=== PATIENT | female | born 1955 | race Caucasian/White ===

== ENCOUNTER 2024-03-14 08:24 | Emergency (ER) | payer MEDICARE ==
[2024-03-14 09:05] VITALS: TEMP 99.7
--- NOTE | 2024-03-14 09:26 | ERPHSYRPT ---
- History of Present Illness Time Seen by Provider: 03/14/24 09:00 Source: patient Exam Limitations: no limitations Patient Subjective Stated Complaint: Cough Triage Nursing Assessment: Patient brought back to ED and transferred self to bed. Patient A+O X 3. Patient's skin flushed, warm and dry. Patient complains of cough for two weeks. Patient has been on Doxycycline and prednisone, but has finished. Patient followed up with PCP yesterday and had blood work and chest xray done and has double pneumonia and was told to come to ER yesterday, but patient stated she felt too bad to come yesterday. Patient denies pain or discomfort. Lungs noted to have wheezing throughout. Patient states she has productive cough with thick yellow/brown/blood tinged sputum. Patient wears home O2 at night at 3 liters and has been wearing during the day. Physician History: Patient is a 69-year-old female presents to our ED for evaluation of cough and shortness of breath. Patient states symptoms started approximately 2 weeks ago. Her primary care doctor diagnosed her with pneumonia and treated her with doxycycline and prednisone. Patient completed a course of antibiotics and symptoms persisted. Patient followed up with her PCP yesterday. Blood work and chest x-ray completed. Patient was diagnosed with double pneumonia and advised to come to our ED for an evaluation. Patient was advised to come to our ED yesterday however she felt too sick to come to the ED for an evaluation. Cough is productive. Patient describes her sputum as yellow and sometimes blood- tinged. Patient requires nightly home O2 usually 3 L but is now requiring it all day long Timing/Duration: yesterday Activities at Onset: none Severity of Dyspnea-Max: moderate Severity of Dyspnea-Current: moderate Possible Cause: occasional episodes Modifying Factors: Improves With: activity Associated Symptoms: cough, weakness, productive cough Allergies/Adverse Reactions: No Known Drug Allergies Allergy (Unverified 03/14/24 08:50) Home Medications: Alendronate Sodium 70 mg [Fosamax 70 MG] 1 tab PO WEEKLY 03/14/24 [History] Amlodipine Besylate [Norvasc] 1 tab PO DAILY 03/14/24 [History] Clopidogrel Bisulfate [Clopidogrel] 1 tab PO DAILY 03/14/24 [History] Ezetimibe 10 mg [Zetia 10 MG] 1 tab PO DAILY 03/14/24 [History] Fenofibrate,Micronized 145 mg* [Tricor 145 MG] 1 tab PO DAILY 03/14/24 [History] Levothyroxine Sodium 1 tab PO DAILY 03/14/24 [History] Metoprolol Succinate [Toprol Xl] 1 tab PO DAILY 03/14/24 [History] Montelukast Sodium 10 mg [Singulair 10 MG] 1 tab PO DAILY 03/14/24 [History] Omeprazole 1 cap PO DAILY 03/14/24 [History] lisinopriL [Lisinopril] 1 tab PO DAILY 03/14/24 [History] Hx Influenza Vaccination/Date Given: No Hx Pneumococcal Vaccination/Date Given: No Immunizations Up to Date: Yes Travel Risk - International Travel Have you traveled outside of the country in past 3 weeks: No - Emerging Infectious Disease Are you exhibiting symptoms associated with any current EIDs: Yes Symptoms: Cough: New Onset - Review of Systems Constitutional: No Symptoms, No Fever, No Chills Eyes: No Symptoms Ears, Nose, & Throat: No Symptoms Respiratory: No Symptoms, No Cough, No Dyspnea Cardiac: No Symptoms, No Chest Pain, No Edema, No Syncope Abdominal/Gastrointestinal: No Symptoms, No Abdominal Pain, No Nausea, No Vomiting, No Diarrhea Genitourinary Symptoms: No Symptoms, No Dysuria Musculoskeletal: No Symptoms, No Back Pain, No Neck Pain Skin: No Symptoms, No Rash Neurological: No Symptoms, No Dizziness, No Focal Weakness, No Sensory Changes Psychological: No Symptoms Endocrine: No Symptoms Hematologic/Lymphatic: No Symptoms Immunological/Allergic: No Symptoms All Other Systems: Reviewed and Negative - Past Medical History Pertinent Past Medical History: Yes ENT History: No Pertinent History Cardiac History: High Cholesterol, Hypertension Respiratory History: COPD Endocrine Medical History: No Pertinent History Musculoskeletal History: No Pertinent History GI Medical History: No Pertinent History History: No Pertinent History Psycho-Social History: No Pertinent History Female Reproductive Disorders: No Pertinent History - Past Surgical History Past Surgical History: No Neuro Surgical History: No Pertinent History Other Surgical History: Thyroidectomy- 4 years ago - Social History Smoking Status: Former smoker Exposure to second hand smoke: Yes Drug Use: none - Social Determinants of Health Will the patient participate in the screening: Yes Do you worry about a steady place to live?: No Do you have any problems with any of the following?: No known problems In the past 12 months,have you had to go without utilities?: No Transportation Issues: No Has anyone in your support network made you feel unsafe?: No Have you or anyone in your house had to go without enough: No - Nursing Vital Signs Nursing Vital Signs: Initial Vital Signs Pulse Rate 102 H 03/14/24 08:47 Respiratory Rate 19 03/14/24 08:47 Blood Pressure 131/69 03/14/24 08:47 O2 Sat by Pulse Oximetry 91 L 03/14/24 08:47 Pain Scale Pain Intensity 0 - Physical Exam General Appearance: no apparent distress, alert Eye Exam: PERRL/EOMI, eyes nml inspection Ears, Nose, Throat Exam: hearing grossly normal, normal ENT inspection, normal pharynx Neck Exam: normal inspection, supple Respiratory Exam: diminished breath sounds, rhonchi, wheezing Cardiovascular/Chest Exam: normal heart sounds, regular rate/rhythm Abdominal/Gastrointestinal Exam: soft, No tenderness, No distention, No mass Extremity Exam: non-tender, normal range of motion, normal inspection, no calf tenderness, no pedal edema Neurologic Exam: alert, oriented x 3, cooperative, food order expediter II-XII nml as tested, sensation nml, No motor deficits Skin Exam: normal color, warm, No dry Lymphatic Exam: No adenopathy SpO2 Interpretation: normal, hypoxic SpO2: 90 O2 Delivery: Room Air - Course Nursing assessment & vital signs reviewed: Yes EKG Interpreted by Me: RATE (99), Sinus Rhythm, NORMAL AXIS, NORMAL INTERVALS, NORMAL QRS - CT Exams Chest CT Interpretation: Tele-radiologist Report (No PE, pulmonary cystic masses and chronic findings) Ordered Tests: Active Orders 24 hr Category Date Time Status Airbrush Artist Technical STAT Care 03/14/24 09:23 Completed EKG-ER Only STAT Care 03/14/24 09:22 Completed IV Insertion STAT Care 03/14/24 09:22 Completed Pulse Oximetry (ED) STAT Care 03/14/24 09:22 Completed CHEST WITH CONTRAST [CT] Stat Exams 03/14/24 09:29 Completed BLOOD CULTURE Stat Lab 03/14/24 10:00 Received CBC W DIFF Stat Lab 03/14/24 09:40 Completed CMP Stat Lab 03/14/24 09:40 Completed D-DIMER QUANTITATIVE Stat Lab 03/14/24 09:40 Completed Lactic Acid Stat Lab 03/14/24 09:57 Completed TROPONIN Q4H Lab 03/14/24 09:40 Completed TROPONIN Q4H Lab 03/14/24 13:45 Completed Medication Summary Discontinued Medications Generic Name Dose Route Start Last Admin Trade Name Keven PRN Reason Stop Dose Admin Albuterol/Ipratropium 3 ml 03/14/24 09:22 03/14/24 09:41 Ipratropium/Albuterol Sulfate 3 Ml Ampul.Neb IH 03/14/24 09:23 3 ml STAT ONE Administration Albuterol/Ipratropium Confirm 03/14/24 09:38 Ipratropium/Albuterol Sulfate 3 Ml Ampul.Neb Administered 03/14/24 09:39 Dose 3 ml IH .STK-MED ONE Methylprednisolone Sodium 0 mg 03/14/24 09:22 03/14/24 09:35 Succinate 125 mg/ Sterile IV 03/14/24 09:23 125 mg Water 2 ml STAT ONE Administration Vancomycin HCl 1 gm in 200 mls @ 125 mls/hr 03/14/24 09:27 03/14/24 13:17 Vancomycin 1 Gram/200 Ml Bag IV 03/14/24 11:02 Infused STAT ONE Infusion Piperacillin Sod/Tazobactam 100 mls @ 200 mls/hr 03/14/24 09:28 03/14/24 10:06 Sod 3.375 gm/ Sodium Chloride IV 03/14/24 09:57 200 mls/hr STAT ONE Administration Sodium Chloride Confirm 03/14/24 09:34 Sodium Chloride 100ml Mini-Bag Plus Administered 03/14/24 09:35 Dose 100 mls @ ud IV .STK-MED ONE Vancomycin HCl Confirm 03/14/24 11:23 Vancomycin 1 Gram/200 Ml Bag Administered 03/14/24 11:24 Dose 1 gm in 200 mls @ ud IV .STK-MED ONE Methylprednisolone Sodium Succinate Confirm 03/14/24 09:34 Methylprednis Sod Succ 125 Mg/2 Ml Vial Administered 03/14/24 09:35 Dose 125 mg .ROUTE .STK-MED ONE Piperacillin Sod/Tazobactam Sod Confirm 03/14/24 09:34 Piperacillin/Tazobactam Sodium 3.375 Gm Vial Administered 03/14/24 09:35 Dose 3.375 gm IV .STK-MED ONE Sterile Water Confirm 03/14/24 09:34 Water For Injection,Sterile 10 Ml Vial Administered 03/14/24 09:35 Dose 10 ml IJ .[employer]-MED ONE Lab/Rad Data: Laboratory Result Diagrams 03/14/24 09:40 03/14/24 09:40 Laboratory Results 03/14/24 03/14/24 03/14/24 Range/Units 13:45 09:57 09:40 WBC (3.98-10.04) x10^3/uL RBC (3.93-5.22) x10^6/uL Hgb (11.2-15.7) g/dL Hct (34.1-44.9) % MCV (79.4-94.8) fL MCH (25.6-32.2) pg MCHC (32.2-35.5) g/dL RDW (11.7-14.4) % Plt Count (182-369) x10^3/uL MPV (9.4-12.3) fL Gran % (34.0-71.1) % Immature Gran % (Auto) (0.001-0.429) % Nucleat RBC Rel Count (0.00-0.2) % Eos # (Auto) (0.04-0.36) x10^3/uL Immature Gran # (Auto) (0.001-0.031) x10^3u/L Absolute Lymphs (auto) (1.18-3.74) x10^3/uL Absolute Monos (auto) (0.24-0.86) x10^3/uL Absolute Nucleated RBC (0.00-0.012) x10^3u/L Lymphocytes % (19.3-51.7) % Monocytes % (4.7-12.5) % Eosinophils % (0.7-5.8) % Basophils % (0.1-1.2) % Absolute Granulocytes (1.56-6.13) x10^3/uL Basophils # (0.01-0.08) x10^3/uL D-Dimer (0.0-0.50) mg/L Sodium (135-145) mmol/L Potassium (3.5-5.1) mmol/L Chloride (98-107) mmol/L Carbon Dioxide (22-30) mmol/L Anion Gap (5-15) MEQ/L BUN (7-17) mg/dL Creatinine (0.52-1.04) mg/dL Estimated GFR ML/MIN Glucose (74-106) mg/dL Lactic Acid 1.0 (0.4-2.0) Calcium (8.4-10.2) mg/dL Total Bilirubin (0.2-1.3) mg/dL AST (14-36) U/L ALT (0-35) U/L Alkaline Phosphatase (38-126) U/L Troponin I < 0.012 (0.000-0.033) ng/mL Serum Total Protein (6.3-8.2) g/dL Albumin (3.5-5.0) g/dL Influenza Type A Ag NEGATIVE (NEGATIVE) Influenza Type B Ag NEGATIVE (NEGATIVE) RSV (PCR) NEGATIVE (NEGATIVE) SARS-CoV-2 (PCR) NEGATIVE (NEGATIVE) 03/14/24 03/14/24 03/14/24 Range/Units 09:40 09:40 09:40 WBC (3.98-10.04) x10^3/uL RBC (3.93-5.22) x10^6/uL Hgb (11.2-15.7) g/dL Hct (34.1-44.9) % MCV (79.4-94.8) fL MCH (25.6-32.2) pg MCHC (32.2-35.5) g/dL RDW (11.7-14.4) % Plt Count (182-369) x10^3/uL MPV (9.4-12.3) fL Gran % (34.0-71.1) % Immature Gran % (Auto) (0.001-0.429) % Nucleat RBC Rel Count (0.00-0.2) % Eos # (Auto) (0.04-0.36) x10^3/uL Immature Gran # (Auto) (0.001-0.031) x10^3u/L Absolute Lymphs (auto) (1.18-3.74) x10^3/uL Absolute Monos (auto) (0.24-0.86) x10^3/uL Absolute Nucleated RBC (0.00-0.012) x10^3u/L Lymphocytes % (19.3-51.7) % Monocytes % (4.7-12.5) % Eosinophils % (0.7-5.8) % Basophils % (0.1-1.2) % Absolute Granulocytes (1.56-6.13) x10^3/uL Basophils # (0.01-0.08) x10^3/uL D-Dimer 3.49 H* (0.0-0.50) mg/L Sodium 128 L (135-145) mmol/L Potassium 4.2 (3.5-5.1) mmol/L Chloride 96 L (98-107) mmol/L Carbon Dioxide 24 (22-30) mmol/L Anion Gap 12.3 (5-15) MEQ/L BUN 7 (7-17) mg/dL Creatinine 0.62 (0.52-1.04) mg/dL Estimated GFR 96.9 ML/MIN Glucose 100 (74-106) mg/dL Lactic Acid (0.4-2.0) Calcium 8.8 (8.4-10.2) mg/dL Total Bilirubin 1.00 (0.2-1.3) mg/dL AST 36 (14-36) U/L ALT 59 H (0-35) U/L Alkaline Phosphatase 107 (38-126) U/L Troponin I < 0.012 (0.000-0.033) ng/mL Serum Total Protein 6.1 L (6.3-8.2) g/dL Albumin 3.1 L (3.5-5.0) g/dL Influenza Type A Ag (NEGATIVE) Influenza Type B Ag (NEGATIVE) RSV (PCR) (NEGATIVE) SARS-CoV-2 (PCR) (NEGATIVE) 03/14/24 Range/Units 09:40 WBC 12.2 H (3.98-10.04) x10^3/uL RBC 3.32 L (3.93-5.22) x10^6/uL Hgb 10.0 L (11.2-15.7) g/dL Hct 29.9 L (34.1-44.9) % MCV 90.1 (79.4-94.8) fL MCH 30.1 (25.6-32.2) pg MCHC 33.4 (32.2-35.5) g/dL RDW 14.0 (11.7-14.4) % Plt Count 525 H (182-369) x10^3/uL MPV 9.5 (9.4-12.3) fL Gran % 82.8 H (34.0-71.1) % Immature Gran % (Auto) 0.8 H (0.001-0.429) % Nucleat RBC Rel Count 0.0 (0.00-0.2) % Eos # (Auto) 0.03 L (0.04-0.36) x10^3/uL Immature Gran # (Auto) 0.10 H (0.001-0.031) x10^3u/L Absolute Lymphs (auto) 0.99 L (1.18-3.74) x10^3/uL Absolute Monos (auto) 0.95 H (0.24-0.86) x10^3/uL Absolute Nucleated RBC 0.00 (0.00-0.012) x10^3u/L Lymphocytes % 8.1 L (19.3-51.7) % Monocytes % 7.8 (4.7-12.5) % Eosinophils % 0.2 L (0.7-5.8) % Basophils % 0.3 (0.1-1.2) % Absolute Granulocytes 10.08 H (1.56-6.13) x10^3/uL Basophils # 0.04 (0.01-0.08) x10^3/uL D-Dimer (0.0-0.50) mg/L Sodium (135-145) mmol/L Potassium (3.5-5.1) mmol/L Chloride (98-107) mmol/L Carbon Dioxide (22-30) mmol/L Anion Gap (5-15) MEQ/L BUN (7-17) mg/dL Creatinine (0.52-1.04) mg/dL Estimated GFR ML/MIN Glucose (74-106) mg/dL Lactic Acid (0.4-2.0) Calcium (8.4-10.2) mg/dL Total Bilirubin (0.2-1.3) mg/dL AST (14-36) U/L ALT (0-35) U/L Alkaline Phosphatase (38-126) U/L Troponin I (0.000-0.033) ng/mL Serum Total Protein (6.3-8.2) g/dL Albumin (3.5-5.0) g/dL Influenza Type A Ag (NEGATIVE) Influenza Type B Ag (NEGATIVE) RSV (PCR) (NEGATIVE) SARS-CoV-2 (PCR) (NEGATIVE) - Progress Progress: improved Air Movement: good Progress Note: Case discussed with hospitalist Dr. Chinchilla who advises transfer as she feels patient will require pulmonary, infectious disease and possibly interventional radiology. I spoke to hospitalist at 12:50 PM 03/14/24 12:50 We contacted [facility]. Patient was accepted via auto excepted by Dr. Henry Saavedra. Patient was accepted at approximately 2:10 PM. Plan of care discussed with patient. She agreed to transfer to [facility] for further evaluation and treatment. 69-year-old female presents to our ED for evaluation of shortness of breath. Workup reveals significant electrolyte abnormalities and cystic masses in the lung suspicious for metastasis. Complexity of problem addressed is moderate acute complicated. No critical care time. Complexity of data reviewed and analyzed is extensive. Test ordered chest reviewed results analyzed and correlated clinically with history and physical exam. Management discussed with receiving hospital who accepted transfer. Risk of complication and or risk of morbidity/mortality of patient management was high. Patient transferred to the higher level of care. Vital stable. Time spent to transfer patient is approximately 20 minutes. Plan of care established for shared decision making. No social determinants of health present to impede follow-up. Portions of this note were created with voice recognition technology. There may be grammatical, spelling, punctuation or sound alike errors 03/15/24 00:28 03/15/24 00:31 Blood Culture(s) Obtained: Yes Antibiotics given: Yes Discussed with : Other Counseled pt/family regarding: lab results, diagnosis, rad results - Departure Departure Disposition: Transfer Clinical Impression: Hypoxia, SOB (shortness of breath), Generalized weakness, Leukocytosis, Hyponatremia, Hypoalbuminemia, Normocytic anemia, Thrombocytosis, Small hiatal hernia, Pulmonary cystic masses, Liver cyst Condition: Stable Critical Care Time: No Referrals: VERONICA BRANDT DIRECT OF REAL ESTATE [Primary Care Provider] - Follow up/PCP as directed
[2024-03-14] MEDS ORDERED: PIPERACILLIN/TAZOBACTAM IV ONE (09:34)
[2024-03-14] MEDS ORDERED: Sodium Chloride 100ML MINI-BAG PLUS 100 ML IV ONE (09:34)
[2024-03-14] MEDS ORDERED: Sterile H2O 10 ml IJ ONE (09:34)
[2024-03-14] MEDS ORDERED: solu-MEDROL ONE (09:34)
[2024-03-14] MEDS: solu-MEDROL 125 MG, Sterile H2O 10 ml 2 ML IV ONE (09:35)
[2024-03-14] MEDS ORDERED: DUONEB 0.5-3 MG/3 ml Neb IH ONE (09:38)
[2024-03-14] MEDS: DUONEB 0.5-3 MG/3 ml Neb IH ONE (09:41)
[2024-03-14] MEDS: PIPERACILLIN/TAZOBACTAM 3.375 GM in Sodium Chloride 100ML MINI-BAG PLUS 100 ML IV ONE (10:06)
[2024-03-14 10:11] LABS: Absolute Neutrophil Ct (ANC) 10.08 x10^3/uL (1.56-6.13); BASOPHIL % 0.3 % (0.1-1.2); Basophil (Absolute #) 0.04 x10^3/uL (0.01-0.08); Eosinophil % 0.2 % (0.7-5.8); Eosinophil (Absolute #) 0.03 x10^3/uL (0.04-0.36); Hematocrit 29.9 % (34.1-44.9); IMMATURE GRAN % 0.8 % (0.001-0.429); Lymphocyte (Absolute #) 0.99 x10^3/uL (1.18-3.74); Lymphocytes % 8.1 % (19.3-51.7); Mean Cell Volume 90.1 fL (79.4-94.8); Mean Corpuscular Hemoglobin 30.1 pg (25.6-32.2); Mean Corpuscular Hgb Concent. 33.4 g/dL (32.2-35.5); Mean Platelet Volume 9.5 fL (9.4-12.3); Monocyte (Absolute #) 0.95 x10^3/uL (0.24-0.86); Monocytes % 7.8 % (4.7-12.5); Neutrophil % 82.8 % (34.0-71.1); Platelet Count 525 x10^3/uL (182-369); Red Blood Count 3.32 x10^6/uL (3.93-5.22); White Blood Count 12.2 x10^3/uL (3.98-10.04)
[2024-03-14 10:31] LABS: ALBUMIN 3.1 g/dL (3.5-5.0); ANION GAP 12.3 MEQ/L (5-15); Calcium 8.8 mg/dL (8.4-10.2); Creatinine 1 0.62 mg/dL (0.52-1.04); EST GLOMERULAR FILTRATION RATE 96.9 ML/MIN; Potassium 4.2 mmol/L (3.5-5.1); Total Protein 6.1 g/dL (6.3-8.2)
[2024-03-14 10:47] LABS: INFLUENZA A NEGATIVE (NEGATIVE); INFLUENZA B NEGATIVE (NEGATIVE); RESPIRATORY SYNCTIAL VIRUS NEGATIVE (NEGATIVE); SARS-CoV-2 Xpert Express NEGATIVE (NEGATIVE)
[2024-03-14] MEDS ORDERED: VANCOMYCIN 1 GRAM/200 ML BAG 1 GM/200 ML PIGGYBACK IV ONE (11:23)
[2024-03-14] MEDS: VANCOMYCIN 1 GRAM/200 ML BAG 1 GM/200 ML PIGGYBACK IV ONE (11:24)
--- NOTE | 2024-03-14 12:29 | XRAY ---
Indication: Short of breath. Pulmonary embolus. Elevated d-dimer. Patient reports diagnosed with "Double pneumonia." Multiple contiguous axial images obtained through the chest using 80 cc Isovue 370 contrast and PE protocol. Comparison: None Good opacification pulmonary arteries to include the lobar and segmental branches. No pulmonary embolus. Heart borderline enlarged. 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 A few right hilar lymph nodes, largest 1.1 x 1.7 cm. Small hiatal hernia with partial intrathoracic stomach. Lungs demonstrate multiple large right perihilar pulmonary cystic masses, several demonstrating fluid leveling. Largest measures 4.2 x 5.9 x 5.5 cm with fluid leveling and mass effect, effacing right middle lobe bronchus with subsequent postobstructive atelectasis. Right upper lobe demonstrates two additional cystic masses, largest 2.6 x 2.9 x 3.0 cm. All the masses demonstrate irregular margins. Tiny right effusion. Primary concern is for malignancy including primary cavitating lung cancer and cystic pulmonary metastasis. Infectious process not completely excluded in right clinical setting. Remaining lungs demonstrate moderate diffuse pulmonary emphysema and minimal bibasilar subsegmental atelectasis/scarring. Bony thorax intact with mild degenerative changes throughout spine and minimal dextroscoliosis. Limited upper abdomen demonstrates 2 hepatic well-circumscribed hypodense lesions largest 1.3 x 1.7 cm favoring cysts. Impression: 1. Negative pulmonary embolus. 2. Right perihilar and right upper lobe irregular cystic masses with fluid leveling and mass effect as detailed. Multiplicity with mass effect concerning for malignancy and would include cavitating lung cancers and cystic pulmonary metastasis. Infection not completely excluded in right clinical setting. 3. Incidental pulmonary emphysema, hiatal hernia with partial intrathoracic stomach, chronic bony findings, and hepatic cysts.
[2024-03-14 15:28] VITALS: O2SAT 90
[2024-03-14 15:50] VITALS: BP 125/81; PULSE 68; RESP 22
== END 2024-03-14 16:00 | disposition short-term general hospital (02) ==
LOC: ED 08:24
DX: R09.02 Hypoxemia (principal); R06.02 Shortness of breath; Z99.81 Dependence on supplemental oxygen; Z79.899 Other long term (current) drug therapy; R53.1 Weakness; D72.829 Elevated white blood cell count, unspecified; E87.1 Hypo-osmolality and hyponatremia; E88.09 Other disorders of plasma-protein metabolism, not elsewhere classified; D64.9 Anemia, unspecified; D75.839 Thrombocytosis, unspecified; K44.9 Diaphragmatic hernia without obstruction or gangrene; R91.8 Other nonspecific abnormal finding of lung field; K76.89 Other specified diseases of liver
CPT/HCPCS: 0241U; 36415; 71260; 80053; 83605; 84484; 85025; 85379; 87040; 93005; 93041; 94640; 94760; 96365; 96374; 96375; 99285; J2919; A9270-GY; J3370